=== PATIENT | male | born 2000 | race Caucasian/White ===

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

== ENCOUNTER 2020-06-25 09:46 | Emergency (ER) | payer BC ==
[2020-06-25] MEDS ORDERED: Ondansetron 4 MG/2 ML SDV IVPUSH ONE (10:12)
[2020-06-25] MEDS ORDERED: Sodium Chloride 0.9% 1,000 ML IV ONE (10:12)
--- NOTE | 2020-06-25 10:22 | EDM.PDOC ---
ED HPI GENERAL MEDICAL PROBLEM - General Chief Complaint: Abdominal Pain Stated Complaint: ABD PAIN Time Seen by Provider: 06/25/20 10:09 Source of Information: Reports: Patient History Limitations: Reports: No Limitations - History of Present Illness INITIAL COMMENTS - FREE TEXT/NARRATIVE: HISTORY AND PHYSICAL: History of present illness: Patient is a 19-year-old male who presents to the emergency room with complaints of epigastric/right upper quadrant pain, nausea, vomiting and diarrhea. He states he has had this discomfort intermittently over the past 1 year but over the past few weeks has been most bothersome. He was evaluated at [facility] and was given a prescription for Zofran. Patient is suspicious that this is his gallbladder as the pain is associated with food. He denies having any increase in high-fat/fast foods recently. The initial plan from his primary care provider was to have him see Dr. Sharma, general surgeon. He had to have a COVID-19 test prior to their referral. He had this done last week which was negative. The appointment with Dr. Sharma was then canceled and not renewed. He has been using the Zofran for nausea management although states it is not working as well as it was earlier in the week. Patient denies any fever, chills, headache, change in vision, syncope or near syncope. Denies any chest pain, back pain, shortness of breath or cough. Denies any constipation, dysuria, nor any blood in urine or stool. Patient has been eating and drinking appropriately. Denies any alcohol or drug abuse. Review of systems: As per history of present illness and below otherwise all systems reviewed and negative. Past medical history: As per history of present illness and as reviewed below otherwise noncontributory. Surgical history: As per history of present illness and as reviewed below otherwise noncontributory. Social history: See social history for further information Family history: As per history of present illness and as reviewed below otherwise noncontributory. Physical exam: General: Well developed and well nourished 19-year-old male. Alert and oriented. Nontoxic-appearing and in no acute distress. Vital signs are stable and have been reviewed by me. HEENT: Atraumatic, normocephalic, pupils equal and reactive bilaterally, negative for conjunctival pallor or scleral icterus, mucous membranes moist, TMs normal bilaterally, throat clear, neck supple, nontender, trachea midline. No drooling or trismus noted. No meningeal signs. No hot potato voice noted. Lungs: Clear to auscultation, breath sounds equal bilaterally, chest nontender. Heart: S1S2, regular rate and rhythm without overt murmur Abdomen: Soft, nondistended, RUQ and epigastric tenderness. Negative for masses or hepatosplenomegaly. Negative for costovertebral tenderness. Skin: Intact, warm, dry. No lesions or rashes noted. Hematologic: No petechiae or purpra. Mucosa appropriate color and normal nail bed color and refill. Extremities: Atraumatic, moves all extremities per self without difficulty or deficits, negative for cords or calf pain. Neurovascular unremarkable. Neuro: Awake, alert, oriented. Cranial nerves II through XII unremarkable. Cerebellum unremarkable. Motor and sensory unremarkable throughout. Exam nonfocal. Notes: CT shows the appendix is normal in size with equivocal inflammatory change off the tip of the appendix. Appendix is retrocecal in location. Findings are suspicious but not conclusive for early appendicitis. Slight intrahepatic biliary duct dilatation of uncertain significance as no extrahepatic biliary duct dilatation is seen. No pancreatic abnormality is appreciated. No gallstones are seen. Patient's lab work is unremarkable. Dr. Quiros, general surgeon on-call, was consulted on this case and he will come in and evaluate the patient. Upon my reassessment the patient has right upper quadrant tenderness and no right lower quadrant tenderness at this time. His vital signs remained stable. He is aware of the general surgeon coming in for evaluation. 1230: Dr Quiros here to evaluate patient. Dr Quiros has with patient about follow-up with him in his clinic. I discussed with patient signs and symptoms that would prompt him to return to the emergency room. Follow-up, medication and supportive care measures were reviewed and discussed. Voices understanding and is agreeable to plan of care. Denies any further questions or concerns at this time. Diagnostics: CBC, CMP, Lipase, UA, CT abd/pelvis Therapeutics: NS, Zofran, Toradol Prescription: Tramadol Impression: Abdominal pain Plan: 1. Your lab work and CT scan are within normal limits with the EXCEPTION of some inflammatory changes around your appendicitis. Please continue to monitor for right lower quadrant pain. A referral has been made, please call Friday to set up an appointment. If your symptoms should worsen, new symptoms develop or any of the signs and symptoms we discussed should arise please return to the emergency room or call 911 (if needed). 2. Continue taking your Zofran as needed. Tramadol for moderate to severe pain. Does cause drowsiness, so do not take while needing to be functioning outside the house, driving or at work. 3. Gallbladder diet (avoid high fat foods, etc...) Definitive disposition and diagnosis as appropriate pending reevaluation and review of above. RUQ Pain Score (Numeric/FACES): 8 - Related Data Allergies Allergy/AdvReac Type Severity Reaction Status Date / Time No Known Allergies Allergy Verified 06/25/20 09:55 Home Meds: Home Meds Ondansetron [Zofran ODT] 1 tab PO ASDIRECTED PRN 06/25/20 [History] traMADol [Ultram] 50 mg PO Q4H PRN #15 tab 06/25/20 [Rx] Past Medical History - Past Health History Medical/Surgical History: Denies Medical/Surgical History HEENT History: Reports: None Cardiovascular History: Reports: None Respiratory History: Reports: None Gastrointestinal History: Reports: Other (See Below) Other Gastrointestinal History: pyloric stenosis Genitourinary History: Reports: None Musculoskeletal History: Reports: None Neurological History: Reports: None Psychiatric History: Reports: None Endocrine/Metabolic History: Reports: None Hematologic History: Reports: None Immunologic History: Reports: None Oncologic (Cancer) History: Reports: None Dermatologic History: Reports: None - Infectious Disease History Infectious Disease History: Reports: Rubella - Past Surgical History Head Surgeries/Procedures: Reports: None HEENT Surgical History: Reports: None Cardiovascular Surgical History: Reports: None Respiratory Surgical History: Reports: None GI Surgical History: Reports: None Male Surgical History: Reports: None Endocrine Surgical History: Reports: None Neurological Surgical History: Reports: None Musculoskeletal Surgical History: Reports: None Oncologic Surgical History: Reports: None Social & Family History - Family History Family Medical History: Noncontributory - Tobacco Use Smoking Status *Q: Current Every Day Smoker Years of Tobacco use: 8 Packs/Tins Daily: 0.9 - Recreational Drug Use Recreational Drug Use: Yes Recreational Drug Type: Reports: Marijuana/Hashish Recreational Drug Use Frequency: Daily ED ROS GENERAL - Review of Systems Review Of Systems: Comprehensive ROS is negative, except as noted in HPI. ED EXAM, GI/ABD - Physical Exam Exam: See Below (See dictation) Course - Vital Signs Last Recorded V/S: Last Vital Signs Temp 96.7 F L 06/25/20 09:55 Pulse 84 06/25/20 09:55 Resp 18 06/25/20 09:55 BP 133/65 06/25/20 09:55 Pulse Ox 97 06/25/20 09:55 - Orders/Labs/Meds Labs: Laboratory Tests 06/25/20 06/25/20 06/25/20 Range/Units 10:03 10:19 10:19 WBC 4.03 (4.0-11.0) K/uL RBC 4.67 (4.50-5.90) M/uL Hgb 14.4 (13.0-17.0) g/dL Hct 41.1 (38.0-50.0) % MCV 88.0 (80.0-98.0) fL MCH 30.8 (27.0-32.0) pg MCHC 35.0 (31.0-37.0) g/dL RDW Std Deviation 38.8 (28.0-62.0) fl RDW Coeff of Norah 12 (11.0-15.0) % Plt Count 204 (150-400) K/uL MPV 9.90 (7.40-12.00) fL Neut % (Auto) 58.8 (48.0-80.0) % Lymph % (Auto) 29.3 (16.0-40.0) % [place] % (Auto) 9.2 (0.0-15.0) % Eos % (Auto) 2.5 (0.0-7.0) % Baso % (Auto) 0.2 (0.0-1.5) % Neut # (Auto) 2.4 (1.4-5.7) K/uL Lymph # (Auto) 1.2 (0.6-2.4) K/uL [place] # (Auto) 0.4 (0.0-0.8) K/uL Eos # (Auto) 0.1 (0.0-0.7) K/uL Baso # (Auto) 0.0 (0.0-0.1) K/uL Sodium 136 (136-148) mmol/L Potassium 3.9 (3.5-5.1) mmol/L Chloride 104 (98-107) mmol/L Carbon Dioxide 27.5 (21.0-32.0) mmol/L BUN 10 (7.0-18.0) mg/dL Creatinine 1.1 (0.8-1.3) mg/dL Est Cr Clr Drug Dosing 93.19 mL/min Estimated GFR (MDRD) > 60.0 ml/min Glucose 87 (74-106) mg/dL Calcium 8.5 (8.5-10.1) mg/dL Total Bilirubin 0.3 (0.2-1.0) mg/dL AST 17 (15-37) IU/L ALT 14 (14-63) IU/L Alkaline Phosphatase 79 (46-116) U/L C-Reactive Protein (0.00-0.90) mg/dL Total Protein 7.2 (6.4-8.2) g/dL Albumin 4.2 (3.4-5.0) g/dL Globulin 3.0 (2.6-4.0) g/dL Albumin/Globulin Ratio 1.4 (0.9-1.6) Lipase 110 (73-393) U/L Urine Color YELLOW Urine Appearance CLEAR Urine pH 6.0 (5.0-8.0) Ur Specific [place] <= 1.005 (1.001-1.035) Urine Protein NEGATIVE (NEGATIVE) mg/dL Urine Glucose (UA) NEGATIVE (NEGATIVE) mg/dL Urine Ketones NEGATIVE (NEGATIVE) mg/dL Urine Occult Blood NEGATIVE (NEGATIVE) Urine Nitrite NEGATIVE (NEGATIVE) Urine Bilirubin NEGATIVE (NEGATIVE) Urine Urobilinogen 0.2 (<2.0) EU/dL Ur Leukocyte Esterase NEGATIVE (NEGATIVE) 06/25/20 Range/Units 10:19 WBC (4.0-11.0) K/uL RBC (4.50-5.90) M/uL Hgb (13.0-17.0) g/dL Hct (38.0-50.0) % MCV (80.0-98.0) fL MCH (27.0-32.0) pg MCHC (31.0-37.0) g/dL RDW Std Deviation (28.0-62.0) fl RDW Coeff of Norah (11.0-15.0) % Plt Count (150-400) K/uL MPV (7.40-12.00) fL Neut % (Auto) (48.0-80.0) % Lymph % (Auto) (16.0-40.0) % [place] % (Auto) (0.0-15.0) % Eos % (Auto) (0.0-7.0) % Baso % (Auto) (0.0-1.5) % Neut # (Auto) (1.4-5.7) K/uL Lymph # (Auto) (0.6-2.4) K/uL [place] # (Auto) (0.0-0.8) K/uL Eos # (Auto) (0.0-0.7) K/uL Baso # (Auto) (0.0-0.1) K/uL Sodium (136-148) mmol/L Potassium (3.5-5.1) mmol/L Chloride (98-107) mmol/L Carbon Dioxide (21.0-32.0) mmol/L BUN (7.0-18.0) mg/dL Creatinine (0.8-1.3) mg/dL Est Cr Clr Drug Dosing mL/min Estimated GFR (MDRD) ml/min Glucose (74-106) mg/dL Calcium (8.5-10.1) mg/dL Total Bilirubin (0.2-1.0) mg/dL AST (15-37) IU/L ALT (14-63) IU/L Alkaline Phosphatase (46-116) U/L C-Reactive Protein < 0.20 (0.00-0.90) mg/dL Total Protein (6.4-8.2) g/dL Albumin (3.4-5.0) g/dL Globulin (2.6-4.0) g/dL Albumin/Globulin Ratio (0.9-1.6) Lipase (73-393) U/L Urine Color Urine Appearance Urine pH (5.0-8.0) Ur Specific [place] (1.001-1.035) Urine Protein (NEGATIVE) mg/dL Urine Glucose (UA) (NEGATIVE) mg/dL Urine Ketones (NEGATIVE) mg/dL Urine Occult Blood (NEGATIVE) Urine Nitrite (NEGATIVE) Urine Bilirubin (NEGATIVE) Urine Urobilinogen (<2.0) EU/dL Ur Leukocyte Esterase (NEGATIVE) Meds: Medications Discontinued Medications Generic Name Dose Route Start Last Admin Trade Name Freq PRN Reason Stop Dose Admin Sodium Chloride 1,000 mls @ 999 mls/hr 06/25/20 10:12 06/25/20 10:20 Normal Saline IV 06/25/20 11:12 999 mls/hr STAT ONE Administration Iopamidol 100 ml 06/25/20 11:17 06/25/20 11:17 Isovue Multipack-370 (76%) IVPUSH 06/25/20 11:18 100 ml ONETIME ONE Administration Ketorolac Tromethamine 30 mg 06/25/20 10:23 06/25/20 10:31 Toradol IVPUSH 06/25/20 10:24 30 mg ONETIME ONE Administration Ondansetron HCl 4 mg 06/25/20 10:12 06/25/20 10:20 Zofran IVPUSH 06/25/20 10:13 4 mg ONETIME ONE Administration Departure - Departure Time of Disposition: 12:44 Disposition: Home, Self-Care 01 Clinical Impression: Abdominal pain Qualifiers: Abdominal location: right upper quadrant Qualified Code(s): R10.11 - Right upper quadrant pain - Discharge Information Prescriptions: traMADol [Ultram] 50 mg PO Q4H PRN #15 tab PRN Reason: Pain Instructions: Abdominal Pain, Adult, [id number] Referrals: Padmini May DO [Primary Care Provider] - Forms: ED Department Discharge Additional Instructions: The following information is given to patients seen in the emergency department who are being discharged to home. This information is to outline your options for follow-up care. We provide all patients seen in our emergency department with a follow-up referral. The need for follow-up, as well as the timing and circumstances, are variable d epending upon the specifics of your emergency department visit. If you don't have a primary care physician on staff, we will provide you with a referral. We always advise you to contact your personal physician following an emergency department visit to inform them of the circumstance of the visit and for follow-up with them and/or the need for any referrals to a consulting specialist. The emergency department will also refer you to a specialist when appropriate. This referral assures that you have the opportunity for follow-up care with a specialist. All of these measure are taken in an effort to provide you with optimal care, which includes your follow-up. Under all circumstances we always encourage you to contact your private physician who remains a resource for coordinating your care. When calling for follow-up care, please make the office aware that this follow-up is from your recent emergency room visit. If for any reason you are refused follow-up, please contact the [facility] Emergency Department at and asked to speak to the emergency department charge nurse. [facility] [address] [place] [id number] [facility] [address] [place] [id number] Thank you for choosing the [facility] emergency department in [place] for your medical needs today. It was a pleasure caring for you. Today you were seen in the emergency department for abdominal pain, nausea, vomiting, diarrhea. 1. Your lab work and CT scan are within normal limits with the EXCEPTION of some inflammatory changes around your appendicitis. Please continue to monitor for right lower quadrant pain. A referral has been made, please call Friday to set up an appointment. If your symptoms should worsen, new symptoms develop or any of the signs and symptoms we discussed should arise please return to the emergency room or call 911 (if needed). 2. Continue taking your Zofran as needed. Tramadol for moderate to severe pain. Does cause drowsiness, so do not take while needing to be functioning outside the house, driving or at work. 3. Gallbladder diet (avoid high fat foods, etc...) Sepsis Event Note (ED) - Evaluation Sepsis Screening Result: No Definite Risk - Focused Exam Vital Signs: Vital Signs Temp Pulse Resp BP Pulse Ox 06/25/20 09:55 96.7 F L 84 18 133/65 97
[2020-06-25] MEDS ORDERED: Ketorolac 30 MG/ML SDV IVPUSH ONE (10:23)
[2020-06-25 10:49] LABS: BLOOD UREA NITROGEN,BUN 10 mg/dL (7.0-18.0); CARBON DIOXIDE,CO2 27.5 mmol/L (21.0-32.0); CHLORIDE,CL 104 mmol/L (98-107); GLUCOSE RANDOM 87 mg/dL (74-106); LIPASE 110 U/L (73-393); POTASSIUM,K 3.9 mmol/L (3.5-5.1); SODIUM,NA 136 mmol/L (136-148)
[2020-06-25] MEDS ORDERED: Iopamidol 755 MG/ML 200 ML Multipack Bottle IVPUSH ONE (11:17)
--- NOTE | 2020-06-25 11:44 | CT ---
CT abdomen and pelvis Technique: Multiple axial sections were obtained from above the dome of the diaphragm inferiorly through the pubic symphysis. Intravenous contrast was utilized. No oral contrast has been given. Reconstructed coronal and sagittal images were reviewed. Comparison: No prior abdominal imaging is available. Findings: Visualized lung bases show nothing acute. Mild intrahepatic biliary duct dilatation is seen. Gallbladder contains no calcified gallstones. No extrahepatic biliary duct dilatation is appreciated. Pancreas shows no discrete abnormality. Spleen appears within normal limits. Adrenal glands show no nodule. Kidneys show symmetric contrast enhancement without hydronephrosis or mass. Appendix appears within normal limits in size. There is very equivocal inflammatory change around the tip of this appendix which is retrocecal in location and terminates inferior to the lower pole of the kidney. Several slightly prominent lymph nodes are seen in this area. Difficult to exclude very early appendicitis although this is not a definite finding at this time. Kidneys show no hydronephrosis or mass. Aorta shows no aneurysm. No retroperitoneal adenopathy or mesenteric abnormalities are seen. No pelvic mass or adenopathy is seen. No free fluid is seen. No other inflammatory change is appreciated. Bone window settings were reviewed which shows no acute osseous finding. Impression: 1. Appendix is normal in size with equivocal inflammatory change off the tip of the appendix. Appendix is retrocecal in location. Findings are suspicious but not conclusive for very early appendicitis. Please correlate with the patient's symptoms and white count. If any further questions remain, follow-up exam and white count could be obtained in 12 hours. 2. Slight intrahepatic biliary duct dilatation of uncertain significance as no extrahepatic biliary duct dilatation is seen. No pancreatic abnormality is appreciated. No calcified gallstones are seen. Please correlate with patient's biliary enzymes. 3. No additional abnormality is appreciated on CT study of the abdomen and pelvis. Diagnostic code #5 This report was dictated in MDT
[2020-06-25 12:53] VITALS: BP 99/38; PULSE 68
--- NOTE | 2020-06-26 14:53 | CONS ---
DATE OF CONSULTATION: 06/25/2020 DATE OF : 2000 PRIMARY CARE PHYSICIAN: Padmini May, DO This is a consult from Kobe Evans NP, ER provider. CONSULTING QUESTION: Abdominal pain. HISTORY OF PRESENT ILLNESS: The patient is a 19-year-old slim built, tall, young gentleman, complained over one year history of abdominal pain in the right upper quadrant, and pain sometimes radiates to the back. Pain is in the morning and food does not help. In fact, food makes it worse. Pain is on a scale of 5/6 sometimes. Currently, the patient denies any pain. Denies jaundice. Denies dark urine. Denies white stool. Had a CAT scan workup in the emergency room, shows a possible very early acute appendicitis. Surgery was consulted. PAST MEDICAL HISTORY: Significant for no diabetes, NM, CVA, hypertension. PAST SURGICAL HISTORY: The patient had pyloric stenosis as a young kid and had surgery done with pyloromyotomy and also had pilonidal cyst surgery in the past. ALLERGIES: Please refer to nursing for details. MEDICATION: Please refer to nursing for details. FAMILY HISTORY: Noncontributory. PHYSICAL EXAMINATION: GENERAL: The patient is very very polite and pleasant and asked him to jump up and down, he jumped several time and asked "am I doing good." HEENT: Normocephalic and atraumatic. Sclerae are anicteric. LUNGS: Clear to auscultation. HEART: Regular rate and rhythm. ABDOMEN: Soft and nondistended. No pulsating tender midline abdominal structure. A well-healed horizontal surgical scar in the right upper quadrant. No hernia. No mass. DIAGNOSTIC DATA: White count is 4 and CAT scan shows the appendix may be a little bit dilated. IMPRESSION: After no pain in the right lower quadrant with jumping up and down and white count of 4, I have very little suspicion for acute appendicitis. Sent home. Follow up with me on an as-needed basis or should be having a followup appointment with me in 1 week from today to likely work up for possible gallstone or on an as-needed basis. If any change in his clinical situation, come back to the emergency room. The patient voiced understanding. As always, thank you for the kind referral . JOSELYN / MARSHALL /[id number]
== END 2020-06-25 12:54 | disposition home or self-care (01) ==
LOC: MW.ED 09:46
DX: R10.11 Right upper quadrant pain (principal); R10.13 Epigastric pain; R11.2 Nausea with vomiting, unspecified; R19.7 Diarrhea, unspecified; F17.210 Nicotine dependence, cigarettes, uncomplicated
CPT/HCPCS: 36415; 74177; 80053; 81003; 83690; 85025; 86140; 96361; 96374; 96375; 99284; J1885; J2405; J7030; Q9967

== ENCOUNTER 2020-07-12 07:19 | Day surgery (SDC) | payer BC ==
[~2020-07-12 07:19] MED LIST: Lactated Ringers 1,000 ML IV SCH; Lidocaine 2% 5 ML SDV ONE; Midazolam 1 MG/ML 2 ML SDV ONE; Propofol 200 MG/20 ML SDV ONE; fentaNYL 100 MCG/2 ML SDV ONE
--- NOTE | 2020-07-12 07:57 | PCM.PREANE ---
Preanesthetic Assessment - Anesthesia/Transfusion/Family Hx Anesthesia History: Prior Anesthesia Without Reaction Family History of Anesthesia Reaction: No Transfusion History: No Prior Transfusion(s) - Review of Systems General: No Symptoms, Night Sweats Cardiovascular: No Symptoms Neurological: No Symptoms Other: Reports: None - Physical Assessment NPO Status Date: 07/11/20 Vital Signs: Last Vital Signs Temp 97.5 F 07/12/20 07:25 Pulse 62 07/12/20 07:25 Resp 16 07/12/20 07:25 BP 112/55 L 07/12/20 07:25 Pulse Ox 98 07/12/20 07:25 Height: 5 ft 11 in Weight: 59.874 kg ASA Class: 2 Mental Status: Alert & Oriented x3 Airway Class: Mallampati = 2 Dentition: Reports: Normal Dentition ROM/Head Extension: Full Lungs: Clear to Auscultation, Normal Respiratory Effort Cardiovascular: Regular Rate, Regular Rhythm - Allergies Allergies/Adverse Reactions: Allergies Allergy/AdvReac Type Severity Reaction Status Date / Time No Known Allergies Allergy Verified 06/29/20 13:24 - Blood Blood Available: No - Anesthesia Plan Pre-Op Medication Ordered: None - Acknowledgements Anesthesia Type Planned: General Anesthesia (tiva) Pt an Appropriate Candidate for the Planned Anesthesia: Yes Alternatives and Risks of Anesthesia Discussed w Pt/Guardian: Yes Pt/Guardian Understands and Agrees with Anesthesia Plan: Yes Additional Comments: {MH: smoker PLAN: tiva PreAnesthesia Questionnaire - Past Health History Medical/Surgical History: Denies Medical/Surgical History HEENT History: Reports: None Cardiovascular History: Reports: None Respiratory History: Reports: None Gastrointestinal History: Reports: Other (See Below) Other Gastrointestinal History: pyloric stenosis Genitourinary History: Reports: None Musculoskeletal History: Reports: Fracture Other Musculoskeletal History: fx rt wrist Neurological History: Reports: None Psychiatric History: Reports: None Endocrine/Metabolic History: Reports: None Hematologic History: Reports: None Immunologic History: Reports: None Oncologic (Cancer) History: Reports: None Dermatologic History: Reports: None - Infectious Disease History Infectious Disease History: Reports: Rubella - Past Surgical History Head Surgeries/Procedures: Reports: None HEENT Surgical History: Reports: None Cardiovascular Surgical History: Reports: None Respiratory Surgical History: Reports: None GI Surgical History: Reports: Other (See Below) Other GI Surgeries/Procedures: surgery for pyloric stenosis at 3 weeks old Male Surgical History: Reports: None Endocrine Surgical History: Reports: None Neurological Surgical History: Reports: None Musculoskeletal Surgical History: Reports: None Oncologic Surgical History: Reports: None - SUBSTANCE USE Smoking Status *Q: Current Every Day Smoker Tobacco Use Within Last Twelve Months: Cigarettes Recreational Drug Type: Reports: Marijuana/Hashish - HOME MEDS Home Medications: Home Meds Ondansetron [Zofran ODT] 1 tab PO ASDIRECTED PRN 06/25/20 [History] traMADol [Ultram] 50 mg PO Q4H PRN #15 tab 06/25/20 [Rx] - CURRENT (IN HOUSE) MEDS Current Meds: Current Medications Lactated Ringer's (Ringers, Lactated) 1,000 mls @ 125 mls/hr IV ASDIRECTED ERICK Last Admin: 07/12/20 07:45 Dose: 125 mls/hr Documented by: Discontinued Medications Fentanyl (Sublimaze) Confirm Administered Dose 100 mcg .ROUTE .STK-MED ONE Stop: 07/12/20 07:10 Lidocaine (Xylocaine-Mpf 2%) Confirm Administered Dose 5 ml .ROUTE .STK-MED ONE Stop: 07/12/20 07:10 Midazolam HCl (Versed 1 Mg/Ml) Confirm Administered Dose 2 mg .ROUTE .STK-MED ONE Stop: 07/12/20 07:10 Propofol (Diprivan 20 Ml) Confirm Administered Dose 400 mg .ROUTE .STK-MED ONE Stop: 07/12/20 07:10
[2020-07-12] MEDS ORDERED: Glycopyrrolate 0.2 MG/ML SDV ONE (08:30)
--- NOTE | 2020-07-12 08:42 | PCM.OPNOTE ---
- General Post-Op/Procedure Note Date of Surgery/Procedure: 07/12/20 Operative Procedure(s): egd w bx Findings: see [id number] Pre Op Diagnosis: abd pain Post-Op Diagnosis: Same Anesthesia Technique: Moderate Sedation Primary Surgeon: Turner Quiros Pathology: egd bx Complications: None Condition: Good
--- NOTE | 2020-07-12 09:14 | PCM.POSTAN ---
POST ANESTHESIA ASSESSMENT - MENTAL STATUS Mental Status: Alert, Oriented - VITAL SIGNS Vital Signs: Last Vital Signs Temp 97.5 F 07/12/20 07:25 Pulse 76 07/12/20 09:08 Resp 12 07/12/20 09:08 BP 118/64 07/12/20 09:08 Pulse Ox 99 07/12/20 09:08 - RESPIRATORY Respiratory Status: Respiratory Rate WNL, Airway Patent, O2 Saturation Stable - CARDIOVASCULAR CV Status: Pulse Rate WNL, Blood Pressure Stable - GASTROINTESTINAL GI Status: No Symptoms - POST OP HYDRATION Hydration Status: Adequate & Stable
--- NOTE | 2020-07-12 09:14 | PCM48HPAN ---
Post Anesthesia Note - EVALUATION WITHIN 48HRS OF ANESTHETIC Vital Signs in Normal Range: Yes Patient Participated in Evaluation: Yes Respiratory Function Stable: Yes Airway Patent: Yes Cardiovascular Function Stable: Yes Hydration Status Stable: Yes Pain Control Satisfactory: Yes Nausea and Vomiting Control Satisfactory: Yes Mental Status Recovered: Yes Vital Signs: Last Vital Signs Temp 97.5 F 07/12/20 07:25 Pulse 76 07/12/20 09:08 Resp 12 07/12/20 09:08 BP 118/64 07/12/20 09:08 Pulse Ox 99 07/12/20 09:08
[2020-07-12 09:22] VITALS: BP 134/76; PULSE 84
--- NOTE | 2020-07-12 15:41 | OR ---
SURGEON: Turner Quiros MD DATE OF PROCEDURE: 07/12/2020 PREOPERATIVE DIAGNOSES: Nausea, vomiting, and abdominal pain. POSTOPERATIVE DIAGNOSES: Nausea, vomiting, and abdominal pain. PROCEDURE PERFORMED: Esophagogastroduodenoscopy with biopsy. PRIMARY SURGEON: Turner Quiros MD COMPLICATIONS: None. DESCRIPTION OF PROCEDURE: EGD: The patient was taken to the endoscopy room, and with the FILM LABORATORY TECHNICIAN, Diprivan was administered. A well-lubricated EGD scope was gently inserted through the oropharynx, down the esophagus, passing through the gastroesophageal junction, into the stomach. The mucosa was examined upon the passage. Any etiology will be noted. Once in the stomach, we continued to advance to the distal antrum, passed through the pylorus into the second portion of the duodenum. Again, the mucosa was examined for any abnormality and etiology. The scope was then retrieved back to the stomach and then retroflexed to look at the fundus of the stomach. If a biopsy was indicated, we will biopsy the antrum, body, and gastroesophageal junction. The air will be sucked out while the scope is retrieved to reduce the patient's discomfort. The patient tolerated the procedure well. There were no intraoperative complications. Dr. Quiros was present through the whole procedure. Prior to surgery, a time-out had been called, the patient identified, procedure identified and antibiotic administered. FINDINGS: 1. The patient is easily sedated with FILM LABORATORY TECHNICIAN and Diprivan. The patient is soundly snoring. 2. Oropharynx and proximal esophagus are free of disease. GE junction at 40 shows minimal salmon-colored change, suggests very mild acid reflux. Stomach rugae is normal in appearance. Antrum looks fine. Duodenum looks grossly normal. Retroflexed look at the fundus of stomach, there is no hiatal hernia. Biopsy done at body, GE junction at 40, and antrum and sucked out the gas while scope pulling out. During the whole study, there is no ulcer, blood, bile, or food particle observed. JOSELYN / MODL /[id number]
== END 2020-07-12 09:35 | disposition home or self-care (01) ==
LOC: MW.SDS 07:19
PROVIDERS: ATTEND Surgery
DX: K29.50 Unspecified chronic gastritis without bleeding (principal); K20.9 Esophagitis, unspecified; F17.210 Nicotine dependence, cigarettes, uncomplicated
CPT/HCPCS: 43239; 88305; 88312; J2001; J2250; J2704; J3010; J3490; J7120; 00731